=== PATIENT | female | born 1985 | race Asian ===

== ENCOUNTER 2016-10-27 12:48 | Observation (INO) | payer OTHER, MEDICAID ==
[~2016-10-27] VITALS: Ht 154.9 cm; Wt 51.8 kg
[~2016-10-27 12:48] MED LIST: ADVIL200 M1 PO; ALBUTEROL17 GM INH; ANTIVERT25 MG PO; COLACE100 MG PO; COMPAZINE10 M PO; DEPO-PROVER150 MG/ML IM; KEFLEX500 MG PO; LORTAB 5/5001 EA PO; MOTRIN600 MG PO; MOTRIN800 MG PO; MULTIVITAMIN1 TAB PO; NEXPLANON68 MG SQ; NO HOME MEDICATION XX; NORCO 5-325 TA1 EACH PO; NORCO 5/325 TAB1 TAB PO; PREDNISONE10 MG PO; PRENATAL VITAM1 EAC1 PO; PRENATAL1 EACH PO; PYRIDIUM200 MG PO; SEPTRA DS TABLE1 TAB PO; TYLENOL500 MG PO; VITAMIN B-12100 MC1 PO; VITAMIN D2000 UNIT PO; VITAMIN D400 UNIT PO; WAL-DRYL25 MG PO
[2016-10-27 13:25] LABS: URINE APPEARANCE CLEAR; URINE BILIRUBIN NEGATIVE (NEG); URINE BLOOD NEGATIVE (NEG); URINE COLOR YELLOW; URINE GLUCOSE (UA) MODERATE (NEG); URINE KETONE SMALL (NEG); URINE LEUKOCYTE ESTERASE NEGATIVE (NEG); URINE NITRITE NEGATIVE (NEG); URINE PROTEIN NEGATIVE (NEG)
[2016-10-27 14:20] LABS: BASO % 0.1 % (0-2); EOS % 0.3 % (0-7); HGB-HEMOGLOBIN 12.3 gm/dl (12.0-15.5); IMMATURE GRANULOCYTES ABSOLUTE 0.08 tho/cmm (0-0.03); LYMPH % 13.9 % (20-45); LYMPH ABSOLUTE COUNT 1.1 tho/cmm (0.8-4.5); MCH (MEAN CORPUSCULAR HGB) 30.8 pg (28.0-32.0); MCHC MEAN CORPUSCULAR HGB CONC 34.2 % (32.0-36.0); MONOCYTE ABSOLUTE COUNT 0.7 tho/cmm (0.0-1.2); NEUTROPHIL ABSOLUTE COUNT 5.9 tho/cmm (1.6-8.0); NEUTROPHIL-AUTOMATED 5.9 tho/cmm (1.6-8.0); NEUTROPHILS % 75.7 % (40-80); PLATELET COUNT 115 tho/cmm (150-450); RED CELL DISTRIBUTION WIDTH 12.9 % (12.4-16.4); WHITE BLOOD COUNT 7.9 tho/cmm (4.0-10.0)
[2016-10-27] MEDS ORDERED: PRENA1 CHEW TA1.4 M1 PO (18:51)
[2016-10-27] MEDS ORDERED: VITAMIN D31000 UNI3 (18:51)
[2016-10-27] MEDS ORDERED: VITAMIN B COMP1 EAC3 PO (18:52)
== END 2016-10-28 18:10 ==
LOC: LDR 12:48
PROVIDERS: Obstetrics & Gynecology; ADMIT Family Medicine
DX: O47.03 False labor before 37 completed weeks of gestation, third trimester (principal); Z3A.34 34 weeks gestation of pregnancy; Z88.2 Allergy status to sulfonamides; Z88.0 Allergy status to penicillin; Z88.1 Allergy status to other antibiotic agents
CPT/HCPCS: J0702; J3105